=== PATIENT | male | born 1995 | race Caucasian/White ===

== ENCOUNTER 2021-04-25 22:01 | Emergency (ER) | payer OTHER ==
[~2021-04-25] VITALS: Ht 175.3 cm; Wt 101.2 kg
--- NOTE | 2021-04-25 23:50 | NUR ---
Patient was just placed in room 2a ER being saturated with patient.
--- NOTE | 2021-04-26 02:45 | NUR ---
Crutches dispensed. Pt instructed on proper use of crutches. Patient able to demonstrate correct use of crutches.
[2021-04-26] MEDS ORDERED: NAPR-1164 PO (02:53)
[2021-04-26 03:02] VITALS: BP 125/84
--- NOTE | 2021-04-26 03:02 | NUR ---
Patient discharged to home in stable condition. Written and verbal after care instructions given. Patient verbalizes understanding of instructions. Stressed follow up or return to ER for worsening s/s.
== END 2021-04-26 03:03 | disposition home or self-care (01) ==
LOC: ER 22:06
DX: S93.402A Sprain of unspecified ligament of left ankle, initial encounter (principal); X50.1XXA Overexertion from prolonged static or awkward postures, initial encounter; Y93.64 Activity, baseball; Y92.320 Baseball field as the place of occurrence of the external cause; Y99.8 Other external cause status
CPT/HCPCS: 73610; A4663